=== PATIENT | male | born 1990 | race Caucasian/White ===

== ENCOUNTER 2022-05-04 18:30 | Outpatient (RCR) | payer SELFPAY ==
--- NOTE | 2022-03-19 12:51 | HP.OTEVAL_ITS ---
Patient's Visit Information RUSSELL BOJORQUEZ is a 31 year old M, referred to Occupational Therapy by MANI JC, with a diagnosis of tremor. Date of Evaluation: 03/18/22 Occupational Therapist: Maisha Pedraza, OTR/Yeny, CHT - Subjective This 31 year old male was seen for OT eval with dx of tremor -. tremor in both but more in left- pt is left handed. pt state last couple years but this spring he noticed much more. pt states he does notice increase difficulty with work and drinking from a cup or bottle. coordination has always been an issue - per mom-. 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 pt and pts mom would like to know why tremors are getting more severe and what they can do to help him stay ind. as much as possible. - ROM ROM Comments: pt demo full UB rom. but pt sits with arms at his side very stiff or guarded (as he's trying to limit the mobility (tremors) - Strength Gasoline Truck Operator: right 90 left 100# Lateral Pinch: right 10# left 8# Tripod Pinch: right 10# left 12 # - Sensation Sensation Comments: denies - Movement Tremors: bilateral Movement Comments: questioning if ataxic movement vs tremors - Quick DASH-Disab of Arm,Shoulder& Hand Quick DASH Score: 11.6650 - Goals Goal:: pt will demo understanding of using ad. eq. to increase ind. with self care as dressing, feeding and grooming tasks. Goal:: pt will demo a reduction in UB tremors by 75% to increase ease of drinking form cup/bottle and feeding self by d/c. pt will demo increase writing ability to form letters of name or signature legibly 5/6 trials by d.c - Rehabilitation General Assessment: pt demo with bilateral UE tremor more on left than right limiting pts ind. with drinking from bottle/cup and limiting his work ability to provide for self- pt would benefit form skilled OT services 1xweek for 4 weeks to assist pt in increasing his IND with self care and work tasks- pt and pts mother agree to POC. Therapist would rec'd Ricardo testing or MRI Rehabilitation Potential: Fair - Anticipated Interventions Orthoses, Joint Protection/Energy Conservation, Ergonomic Education, Fine Motor Coord/Rex, Neuro Reeducation, Education re assistive Equipment, Education re Diagnosis, Caregiver Training, Home Program - Visit Plan Frequency: 1-2x /Week Duration: 4 Weeks TEXT: Thank you for the opportunity to evaluate your patient. For Medicare and Medicare HMO plans, please review the plan of care and approve it. It will need to be FAXED BACK to us at [phone] for Medicare purposes. Please let me know if there are questions or concerns regarding this plan of care. Physician Signature: Date:
--- NOTE | 2022-08-17 16:18 | HP.OT.NRP ---
RUSSELL BOJORQUEZ was seen in my office for initial evaluation on 03/18/22. The following Plan of Care was established for this patient: Initial Frequency: 1-2x /Week Initial Duration: 4 Weeks Anticipated Interventions: Orthoses, Joint Protection/Energy Conservation, Ergonomic Education, Fine Motor Coord/Rex, Neuro Reeducation, Education re assistive Equipment, Education re Diagnosis, Caregiver Training, Home Program This patient was last seen in our office 05/04/22. Pertinent comments regarding their Occupational therapy will appear below: pt was seen for 4 OT sessions. no further apts have been scheduled and due to time lapse in services pt d/c. At this point I will be discontinuing this patient from occupational therapy. I would be happy to see this patient again in the future if found appropriate by the physician. Thank you! Maisha Pedraza, OTR/L, CHT
== END 2022-05-04 19:00 | disposition home or self-care (01) ==
LOC: OT 18:30
DX: G25.2 Other specified forms of tremor (principal)
CPT/HCPCS: 97166; 97530